=== PATIENT | male | born 1970 | race Caucasian/White ===

== ENCOUNTER → 2021-08-23 | Outpatient (CLI) | payer OTHER ==
[~2021-08-23] MED LIST: ASPIRIN81 MG PO; ATORVASTATIN CA20 MG PO; CHANTIX1 EACH PO; CLOPIDOGREL75 MG PO; LISINOPRIL10 MG PO; LOPRESSOR 50 MG50 MG PO; ROBITUSSIN100 MG/5 M PO; ZOCOR20 MG PO
== END ==
LOC: KOH-I 10:48
DX: J20.9 Acute bronchitis, unspecified (principal)
CPT/HCPCS: 71046